=== PATIENT | male | born 1995 | race Two or more races ===

== ENCOUNTER 2024-07-10 19:05 | Emergency (ER) | payer SELFPAY ==
[2024-07-10 19:17] VITALS: BP 144/88; PULSE 86; RESP 18; TEMP 37.3; O2SAT 98
--- NOTE | 2024-07-10 19:24 | XR_ITS ---
Examination: Knee, right , 3 views Technique: Knee AP, lateral, oblique 3 views Date and time of exam: July 10, 2024 1930 hrs. Indications: Injury to the knee today, knee pain. 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
--- NOTE | 2024-07-10 19:43 | PD.EDLOWEX ---
Lower Extremity Injury RME/HPI General Chief Complaint: General Adult/Misc Complain Stated Complaint: POSSIBLE TORN INSIDE KNEE Time Seen by Provider: 07/10/24 19:24 Arrival date/time: 07/10/24 19:05 29M with no significant PMh presents to ED with R knee pain after he knelt down at work at felt something poke into him; likely a lemon branch. Patient has not had a tetanus shot in the past 5 years. Limitations: no limitations Related Data Previous Rx's ?Medication ?Instructions ?Recorded amoxicillin 875 mg-potassium 1 tab PO BID 5 days #10 tabs 07/10/24 clavulanate 125 mg tablet Allergies Allergy/AdvReac Type Severity Reaction Status Date / Time No Known Allergies Allergy Verified 07/10/24 19:08 Review of Systems Review of Systems Systems Reviewed: All systems reviewed, normal except as documented Constitutional Constitutional: Reports system reviewed and no additional complaints, except as documented, Denies fever(s) and Denies headache(s) ENT Ears, Nose, Mouth, and Throat: Denies disequilibrium and Denies headache(s) Cardiovascular Cardiovascular: Reports system reviewed and no additional complaints, except as documented, Denies chest pain and Denies dyspnea Respiratory Respiratory: Reports system reviewed and no additional complaints, except as documented, Denies cough and Denies dyspnea Gastrointestinal Gastrointestinal: Reports system reviewed and no additional complaints, except as documented, Denies abdominal pain, Denies nausea and Denies vomiting Musculoskeletal Musculoskeletal: Reports as per HPI and Reports arthralgias Neurologic Neurologic: Reports system reviewed and no additional complaints, except as documented, Denies confusion, Denies disequilibrium and Denies headache(s) Psychiatric Psychiatric: Denies confusion Past Medical History Social History SMOKING STATUS: Never smoker ED Exam General Limitations: Present no limitations General appearance: Present alert and in no apparent distress Head Head exam: Present atraumatic Eye Eye exam: Present normal appearance, PERRL and EOMI ENT ENT exam: Present normal exam, normal oropharynx and mucous membranes moist Neck Neck exam: Present normal inspection, full ROM and trachea midline Chest Chest inspection: Present normal inspection and symmetric chest wall rise Respiratory Respiratory exam: Present normal lung sounds bilaterally Cardiovascular Cardiovascular exam: Present regular rate, normal rhythm and normal heart sounds Abdominal Exam Abdominal exam: Present soft and normal bowel sounds Extremities Exam Extremities exam: Present full ROM Expanded Lower Extremity Exam Knee exam: Present full ROM, tenderness and laceration (R puncture wound) Back Exam Back exam: Present normal inspection and full ROM Neurological Exam Neurological exam: Present alert, oriented X3 and CN II-XII intact Psychiatric Psychiatric exam: Present normal affect and normal mood Skin Skin exam: Present warm, dry, intact and normal color Course Quality Measures none Orders Category Date Time Status Crutches .NOW Care 07/10/24 22:13 Completed randolph wrap [Splint / Immobilizer] STAT Care 07/10/24 22:13 Completed XR knee RT 3V Stat Exams 07/10/24 19:24 Completed Doxycycline [Vibramycin] Med 07/10/24 19:24 Discontinued 100 mg PO X1 ONE HYDROcodone*/APAP 5/325 [[place] 5/325] Med 07/10/24 22:44 Discontinued 1 tab PO X1 ONE Naproxen [Naprosyn] Med 07/10/24 19:24 Discontinued 500 mg PO X1 ONE Tet,Diphth,Pertuss(Acell)-Tdap [Boostrix Vacc] Med 07/10/24 19:24 Discontinued 0.5 ml IMI .ONCE ONE Vital Signs Vital signs: Vital Signs Temperature 99.1 F 07/10/24 19:17 Pulse Rate 86 07/10/24 19:17 Respiratory Rate 18 07/10/24 19:17 Blood Pressure 144/88 H 07/10/24 19:17 Pulse Oximetry (%) 98 07/10/24 19:17 Oxygen Delivery Method Room Air 07/10/24 19:17 O2 at 98% on RA and WNLs Extremity Injury, Lower MDM Narrative MDM Narrative:: 29M with no significant PMh presents to ED with R knee pain after he knelt down at work at felt something poke into him; likely a lemon branch. Patient has not had a tetanus shot in the past 5 years. Physical exam reveals R knee puncture wound and some tenderness. ROM mostly intact, though painful. Patient is afebrile, calm, and alert. XR reveals possible ligament tear. Given tdap, ABX, RANDOLPH wrap, and crutches. Patient data External records reviewed:: [facility] [place] previous records Clinical information provided by:: patient Social determinants that could affect healthcare access:: none Patient has the following chronic illnesses:: none How is presenting disease/condition affected by chronic disease/condition?: no chronic disease Evaluation data The following diagnostics were reviewed and interpreted by me:: radiology exam(s) Lab and/or radiology exams considered but not ordered:: ordered Interpretation Summary: above Medications / Prescriptions Medications or Prescriptions considered but not ordered:: ordered Medication administrations:: Medication Administration History Discontinued Medications Hydrocodone Bitart/Acetaminophen (Hydrocodone/Apap 5/325 Tablet) 1 tab PO X1 ONE Stop: 07/10/24 22:45 Last Admin: 07/10/24 22:51 Dose: 1 tab Documented By: GUERITA Diphtheria/Tetanus/Acell Pertussis (Diphth,Pertuss(Acell),Tet Vac 0.5 Ml Syr- Adult) 0.5 ml IMi .ONCE ONE Stop: 07/10/24 19:25 Last Admin: 07/10/24 19:46 Dose: 0.5 ml Documented By: GUERITA Doxycycline Hyclate (Doxycycline 100 Mg Tablet) 100 mg PO X1 ONE Stop: 07/10/24 19:25 Last Admin: 07/10/24 19:44 Dose: 100 mg Documented By: GUERITA Naproxen (Naproxen 250 Mg Tablet) 500 mg PO X1 ONE Stop: 07/10/24 19:25 Last Admin: 07/10/24 19:45 Dose: 500 mg Documented By: GUERTIA above Consultations Consultation(s) initiated? (list below): No Diagnosis Extremity Injury, Lower Differential Diagnosis: ankle sprain and strain, acute internal derangement of knee, puncture wound of foot, fracture of toe, ankle fracture and other (puncture wound) Most likely diagnosis given after review of the tests above:: puncture wound and internal derangement of knee Admission Indicated Admission indicated?: not indicated Admission Request Was there a request for admission?: No Disposition Plan Disposition Plan: Discharge Discharge Attestation Discharge Attestation: The patient and all family members were given an opportunity to ask questions and understood the discharge instructions. Discharge instructions specifically effects, indications for sooner follow up or return to the emergency department, and the expected course of current diagnosis. Patient condition: Stable Discharge Plan Plan Patient Disposition: HOME (Self Care) Disposition Comment: Stable Prescriptions/Referrals Prescriptions/Med Rec: New amoxicillin-pot clavulanate 875-125 mg tablet 1 tab PO BID 5 Days Qty: 10 0RF Referrals: No Primary/Family,Physician [Primary Care Provider] - In 1 week Problem List Clinical Impression: Puncture wound, Internal derangement of right knee Patient/Caregiver Discharge Instructions Education Materials: How Your Knee Works Additional Instructions: Please follow-up with PCP within 24-48 hours and return immediately if symptoms worsen. If problem persists, recommend outpatient PT and/or MRI follow-up. In the meantime, rest, use ice/heat, and/or compression. Print Language: Syrian Stand Alone Forms: Patient Portal Info Letter PA/[employer] Supervising Physician PA/[employer] Supervising Physician: Dr. Pak
[2024-07-10] MEDS: DOXYCYCLINE 100 MG TABLET PO (19:44)
[2024-07-10] MEDS: NAPROXEN 250 MG TABLET 500 MG PO (19:45)
[2024-07-10] MEDS: DIPHTH,PERTUSS(ACELL),TET VAC 0.5 ML SYR- ADULT IMi (19:46)
[2024-07-10] MEDS: HYDROcodone/APAP 5/325 TABLET 1 TAB PO (22:51)
== END 2024-07-10 22:54 | disposition home or self-care (01) ==
PROVIDERS: Emergency Provider Emergency Medicine
DX: M23.91 Unspecified internal derangement of right knee (principal); S81.031A Puncture wound without foreign body, right knee, initial encounter; X58.XXXA Exposure to other specified factors, initial encounter; Y99.0 Civilian activity done for income or pay; Z23 Encounter for immunization
CPT/HCPCS: 73562; 90471; 90715; 99283; A9270